=== PATIENT | male | born 1940 | race Caucasian/White ===

== ENCOUNTER 2016-08-24 12:08 | Inpatient (IN) | payer MEDICARE ==
[~2016-08-24] VITALS: Ht 182.9 cm; Wt 118.0 kg
--- NOTE | ~2016-08-24 | DS ---
[place], [place] DISCHARGE SUMMARY NAME: [facility]EDO [id number] UNIT #: [id number] ROOM: 405 DOCTOR: GREGORIO CLOUD MD BIRTHDATE: [birth year] DOS: 08/26/2016 SUBJECTIVE: The patient feeling better. OBJECTIVE: VITAL SIGNS: Blood pressure 140/70, heart rate of 85 beats per minute, breathing 18 times per minute, temperature 98 degrees Fahrenheit. GENERAL APPEARANCE: The patient is alert and oriented x 3, in no visible distress. VITAL SIGNS: VITAL SIGNS: Blood pressure 140/70, heart rate of 85 beats per minute, breathing 18 times per minute, temperature 98 degrees Fahrenheit. HEENT AND NECK: Exam within normal limits. CARDIOVASCULAR SYSTEM: Heart rate is regular in rate and rhythm. S1 and S2 normally audible. LUNGS: Clear to auscultation. ABDOMEN: Soft, nontender. No obvious organomegaly. Bowel sounds are present. EXTREMITIES: Generalized weakness and chronic skin changes in both lower extremities. DISCHARGE DIAGNOSES: 1. Acute urinary retention from stopping Flomax at home, now patient has a Johnson catheter. 2. Acute renal failure related to urinary retention, completely resolved with hydration. 3. Chronic atrial fibrillation with controlled heart rates. The patient anticoagulated and INR therapeutic at 3, anticoagulated with Coumadin. 4. Chronic stasis dermatitis in both legs and chronic leg edema. 5. Benign essential hypertension. 6. Left ventricular hypertrophy and moderate mitral regurgitation with dilated left atrium on echocardiogram from past history. 7. Cholelithiasis, choledocholithiasis in the past. 8. Benign prostatic hypertrophy. 9. Peripheral arterial disease being followed by Dr. Sandro Fiore. 10. Hypothyroidism. 11. Mixed hyperlipidemia. 12. Vitamin D deficiency. The patient admitted when he presented with acute renal failure secondary to acute urinary retention. The patient's had apparently stopped his Flomax since he was urinating too much. This apparently led to acute urine retention and acute renal failure with BUN and creatinine elevated at 73 and 7.9. Johnson catheter was placed and 3 liters of urine was retained and collected when the catheter was introduced. The patient's kidneys have returned to baseline normal function now. The patient to be sent home with Johnson catheter to follow up as an outpatient with urologist. There is no urologist available at [facility] at present time. The patient will also follow up with his PCP within a week. Kidney function is normal. Generalized weakness and failure to thrive. The patient to work with physical therapy with bedsore and fall precautions. Benign essential hypertension with controlled blood pressures. [place], [place] DISCHARGE SUMMARY NAME: MAME ACEVEDO SR UNIT #: [id number] ROOM: 405 DOCTOR: GREGORIO CLOUD MD BIRTHDATE: [birth year] Hypothyroidism, treated with supplements. Chronic atrial fibrillation. The patient anticoagulated with Coumadin and INR therapeutic at 3 prior to discharge today. The patient is complaining of constipation for which he was started on MiraLax and he will take it as needed at home after discharge. LABORATORY DATA: Urine cultures were negative. BUN and creatinine are 21 and 1.2 prior to discharge with normal serum electrolytes. INR is at 3. DISCHARGE MANAGEMENT: Coumadin 3 mg daily, MiraLax 17 grams daily, levothyroxine 75 mcg daily, metoprolol 100 mg b.i.d., amitriptyline 10 mg daily, prednisone 5 mg daily, Vicodin b.i.d. p.r.n. for pain. Follow up with PCP this week and with as soon as possible for urine retention. The patient being sent home with a Jhonson catheter and a thigh bag for collecting urine. GREGORIO CLOUD MD CM:RAMIRO [id number] GREGORIO CLOUD MD 08/27/16 0047 interface
--- NOTE | ~2016-08-24 | WRIGHTHP ---
[place], [place] PATIENT HISTORY AND PHYSICAL EXAM NAME: MAME ACEVEDO SR UNIT #: [id number] ROOM: 405 DOCTOR: GREGORIO CLOUD MD BIRTHDATE: [birth year] DOS: 08/24/2016 HISTORY OF PRESENT ILLNESS: The patient is a 75-year-old gentleman with a past medical history of: 1. Chronic stasis dermatitis in both legs and chronic leg edema. 2. Chronic atrial fibrillation. 3. Left ventricular hypertrophy with dilated left atrium and moderate MR. 4. Benign essential hypertension. 5. Cholelithiasis and choledocholithiasis in the past. 6. Benign prostatic hypertrophy. 7. Peripheral arterial disease, followed by vascular surgeon, Dr. Sandro Fiore. 8. Hypothyroidism. 9. Mixed hyperlipidemia. 10. Vitamin D deficiency. The patient was unable to urinate since last Wednesday and presented to the Emergency Department where he was found to be in urine retention and acute renal failure from urine retention. BUN and creatinine were elevated to 73 and 7.9. The patient had about 3 liters of urine in his bladder after Johnson catheter was placed. The patient is starting to feel better. No chest pain. No shortness of breath. No GI or urinary symptoms. No dizziness or fainting episode. No chest pain. REVIEW OF SYSTEMS: LUNGS: No shortness breath or wheezing. GASTROINTESTINAL: No nausea, vomiting, diarrhea or constipation. CARDIOVASCULAR SYSTEM: No chest pain, shortness of breath. FAMILY HISTORY: Noncontributory. SOCIAL HISTORY: The patient lives with his . Denies smoking cigarettes, alcohol and drug abuse. ALLERGIES: No known drug allergies, but he has LATEX allergy. HOME MEDICATIONS: Coumadin, MiraLax, levothyroxine, metoprolol, amitriptyline, prednisone and Vicodin. PHYSICAL EXAMINATION: GENERAL: Alert, oriented, very weak, in no visible distress. SKIN: Changes in his legs compatible with stasis dermatitis. IMPRESSION AND PLAN: 1. The patient has acute kidney failure related to urine retention. Johnson catheter in place and the patient diuresing very well and is being hydrated with IV fluids. BUN and creatinine improved to 38 and 2.5. [place], [place] PATIENT HISTORY AND PHYSICAL EXAM NAME: MAME ACEVEDO SR UNIT #: [id number] ROOM: [facility] DOCTOR: GREGORIO CLOUD MD BIRTHDATE: [birth year] 2. Leukocytosis, resolved spontaneously without treatment without any antibiotics. No signs of infection. 3. Generalized disability adult failure to thrive. The patient to be kept on physical therapy. 4. The patient anticoagulated with Coumadin. Protime is to be monitored. GREGORIO CLOUD MD CM:HISPHYS:PATIENT HISTORY AND PHYSICAL EXAMINATION 12 30 GREGORIO CLOUD MD 08/25/161930 interface
[~2016-08-24 12:08] MED LIST: ASPIRIN81 M1 PO; CLEOCIN HCL300 MG PO; COUMADIN3 M1 PO; DIGOXIN0.125 MG PO; DUONEB 3 MG/3 ML3 M1 INH; HYDR25T PO; LASIX40 MG PO; LISINOPRIL10 M1 PO; NEBULIZER; OMEPRAZOLE20 M2 PO; REFRESH OPTIVE10 M1 OP; REFRESH TEARS 330 ML OP; SYNTHROID,LEVO75 MCG PO; TAMSULOSIN HCL0.4 MG PO; TOPROL XL100 MG PO; VITAMIN D50000 I3 PO; ZOCOR80 MG PO
[2016-08-24] MEDS ORDERED: LEVOTHYROXIN0.075 M1 PO (12:22)
[2016-08-24] MEDS ORDERED: PREDNISONE5 MG PO (12:22)
[2016-08-24] MEDS ORDERED: WARFARIN SODIUM3 MG PO (12:22)
[2016-08-24] MEDS ORDERED: METOPROLOL TAR100 M1 PO (12:22)
[2016-08-24] MEDS ORDERED: DIGITEK0.125 MG PO (12:22)
[2016-08-24] MEDS ORDERED: ACETAMINOPHEN-H1 TA2 PO (12:23)
[2016-08-24] MEDS ORDERED: AMITRIPTYLINE10 MG PO (12:23)
[2016-08-24 12:24] VITALS: BP 132/82
[2016-08-24 12:49] LABS: BASO % 0.3 % (0.0-1.0); EOS # 0.3 10*3/uL (0.0-0.4); EOS % 2.2 % (1.0-4.0); HEMATOCRIT 42.3 % (42.0-52.0); HEMOGLOBIN 13.9 g/dl (14.0-18.0); IG # 0.1 10*3/uL (0.0-0.1); LYMPH % 6.3 % (27.0-41.0); MEAN CELL VOLUME 86.3 fl (80.0-94.0); MEAN CORPUSCULAR HGB 28.4 pg (27.0-31.0); MEAN CORPUSCULAR HGB CONC 32.9 g/dl (33.0-37.0); MEAN PLATELET VOLUME 8.6 fl (9.6-12.3); MONO % 6.2 % (3.0-9.0); NEUT % 84.5 % (47.0-73.0); PLATELET COUNT AUTOMATED 263 10*3/uL (130-400); RED CELL DISTRI WIDTH 14.5 % (0-14.5); WHITE BLOOD COUNT 15.4 10*3/uL (4.8-10.8)
[2016-08-24 12:58] LABS: INTERNATIONAL NORM RATIO 3.6 (2.0-3.5); PROTHROMBIN TIME 41.9 SECONDS (9.0-12.4)
[2016-08-24 13:09] LABS: ALBUMIN 2.7 gm/dl (3.1-4.5); BILIRUBIN, TOTAL 0.8 mg/dl (0.2-1.0); BUN 73 mg/dl (7-24); CARBON DIOXIDE 23 mmol/L (21-32); CHLORIDE 95 mmol/L (98-107); EST GLOM FILT AFRICAN AMERICAN 8 ml/min; GLUCOSE 123 mg/dL (65-99); POTASSIUM 4.4 mmol/L (3.5-5.1); SGOT/AST 30 IU/L (3-35); SGPT/ALT 43 U/L (12-78); SODIUM 133 mmol/L (136-145); TOTAL PROTEIN 7.6 gm/dL (6.4-8.2)
[2016-08-24 13:14] LABS: ALKALINE PHOSPHATASE 100 U/L (45-117); CPK 18 U/L (39-308)
[2016-08-24 13:17] LABS: CKMB < 0.5 ng/ml (0.5-3.6); TROPONIN I < 0.015 ng/ml (<0.045)
[2016-08-24 13:26] LABS: DIGOXIN 1.25 ng/ml (0.8-2.0)
[2016-08-24 18:02] LABS: BILIRUBIN NEGATIVE (NEGATIVE); BLOOD 3+ (NEGATIVE); CLARITY SL CLOUDY (CLEAR); COLOR YELLOW (YELLOW); GLUCOSE NEGATIVE (NEGATIVE); KETONE NEGATIVE (NEGATIVE); LEUKO ESTERASE TRACE (NEGATIVE); NITRITE NEGATIVE (NEGATIVE); PROTEIN TRACE (NEGATIVE); UROBILINOGEN 0.2 E.U./dl (0.2-1.0)
[2016-08-24 18:08] LABS: BACTERIA TRACE; EPITHELIAL CELLS 0-2; RBC TNTC rbc/hpf (0-2); URINE REFLEX COMMENT YES (NO); WBC 0-2 wbc/hpf (0-5)
[2016-08-24 19:10] VITALS: BP 170/80
[2016-08-24 19:48] VITALS: BP 153/86
[2016-08-24 20:30] VITALS: BP 139/67
[2016-08-24] MEDS ORDERED: SIMVASTATIN40 MG PO (21:25)
[2016-08-24] MEDS ORDERED: FLOMAX0.4 MG PO (21:26)
[2016-08-25] VITALS: BP 123/79
[2016-08-25 06:04] LABS: BASO % 0.4 % (0.0-1.0); EOS # 0.4 10*3/uL (0.0-0.4); EOS % 4.2 % (1.0-4.0); HEMATOCRIT 38.3 % (42.0-52.0); HEMOGLOBIN 12.7 g/dl (14.0-18.0); IG # 0.1 10*3/uL (0.0-0.1); LYMPH # 1.3 10*3/uL (1.3-4.4); LYMPH % 12.5 % (27.0-41.0); MEAN CELL VOLUME 86.8 fl (80.0-94.0); MEAN CORPUSCULAR HGB 28.8 pg (27.0-31.0); MEAN CORPUSCULAR HGB CONC 33.2 g/dl (33.0-37.0); MEAN PLATELET VOLUME 9.2 fl (9.6-12.3); MONO # 0.8 10*3/uL (0.1-1.0); MONO % 7.8 % (3.0-9.0); NEUT # 7.8 10*3/uL (2.3-7.9); NEUT % 74.6 % (47.0-73.0); PLATELET COUNT AUTOMATED 262 10*3/uL (130-400); RED BLOOD COUNT 4.41 10*6/uL (4.50-5.90); RED CELL DISTRI WIDTH 14.5 % (0-14.5); WHITE BLOOD COUNT 10.5 10*3/uL (4.8-10.8)
[2016-08-25 06:29] LABS: POTASSIUM 4.1 mmol/L (3.5-5.1)
[2016-08-25 07:49] VITALS: BP 129/60
[2016-08-25 08:25] LABS: ALBUMIN 2.4 gm/dl (3.1-4.5); PHOSPHOROUS 2.9 mg/dL (2.5-4.9); POTASSIUM 4.2 mmol/L (3.5-5.1)
[2016-08-25 11:52] VITALS: BP 112/68
[2016-08-25 16:00] VITALS: BP 148/73
[2016-08-25 20:00] VITALS: BP 131/67
[2016-08-26] VITALS: BP 114/64
[2016-08-26 06:17] LABS: BASO # 0.1 10*3/uL (0.0-0.1); BASO % 0.7 % (0.0-1.0); EOS # 0.6 10*3/uL (0.0-0.4); EOS % 6.1 % (1.0-4.0); HEMATOCRIT 36.5 % (42.0-52.0); HEMOGLOBIN 11.6 g/dl (14.0-18.0); IG # 0.1 10*3/uL (0.0-0.1); LYMPH # 1.6 10*3/uL (1.3-4.4); LYMPH % 14.9 % (27.0-41.0); MEAN CELL VOLUME 88.2 fl (80.0-94.0); MEAN CORPUSCULAR HGB CONC 31.8 g/dl (33.0-37.0); MEAN PLATELET VOLUME 9.1 fl (9.6-12.3); MONO # 0.7 10*3/uL (0.1-1.0); MONO % 6.2 % (3.0-9.0); NEUT # 7.5 10*3/uL (2.3-7.9); NEUT % 71.6 % (47.0-73.0); PLATELET COUNT AUTOMATED 248 10*3/uL (130-400); RED BLOOD COUNT 4.14 10*6/uL (4.50-5.90); RED CELL DISTRI WIDTH 14.5 % (0-14.5); WHITE BLOOD COUNT 10.5 10*3/uL (4.8-10.8)
[2016-08-26 06:39] LABS: PROTHROMBIN TIME 33.7 SECONDS (9.0-12.4)
[2016-08-26 06:40] LABS: CARBON DIOXIDE 26 mmol/L (21-32); CHLORIDE 105 mmol/L (98-107); EST GLOM FILT AFRICAN AMERICAN > 60 ml/min; GLUCOSE 176 mg/dL (65-99); POTASSIUM 3.5 mmol/L (3.5-5.1); SODIUM 140 mmol/L (136-145)
[2016-08-26 06:41] LABS: BUN 21 mg/dl (7-24)
[2016-08-26 08:00] VITALS: BP 140/70
[2016-08-26] MEDS ORDERED: MIRALAX POWDER17 G1 PO (10:56)
[2016-08-26] MEDS ORDERED: MIRALAX17 GM PO (11:43)
[2016-08-26 12:00] VITALS: BP 142/64
== END 2016-08-26 13:09 | disposition home or self-care (01) | DRG 682 ==
LOC: ED 12:08 → EDHOLD 18:24 → 4E 18:24
PROVIDERS: Emergency Medicine; Internal Medicine; Internal Medicine Nephrology
DX: N17.0 Acute kidney failure with tubular necrosis (principal); E43 Unspecified severe protein-calorie malnutrition; I11.9 Hypertensive heart disease without heart failure; I48.2 Chronic atrial fibrillation; D72.829 Elevated white blood cell count, unspecified; I73.9 Peripheral vascular disease, unspecified; E78.2 Mixed hyperlipidemia; E55.9 Vitamin D deficiency, unspecified; E03.9 Hypothyroidism, unspecified; K80.20 Calculus of gallbladder without cholecystitis without obstruction; K59.00 Constipation, unspecified; I87.2 Venous insufficiency (chronic) (peripheral); R62.7 Adult failure to thrive; N40.1 Benign prostatic hyperplasia with lower urinary tract symptoms; R33.8 Other retention of urine; Z79.899 Other long term (current) drug therapy; Z79.01 Long term (current) use of anticoagulants; Z68.36 Body mass index [BMI] 36.0-36.9, adult

== ENCOUNTER → 2016-09-08 | Outpatient (CLI) | payer MEDICARE ==
[~2016-09-08] MED LIST changes: +ACETAMINOPHEN-H1 TA2 PO; +AMITRIPTYLINE10 MG PO; +DIGITEK0.125 MG PO; +FLOMAX0.4 MG PO; +LEVOTHYROXIN0.075 M1 PO; +METOPROLOL TAR100 M1 PO; +MIRALAX POWDER17 G1 PO; +MIRALAX17 GM PO; +PREDNISONE5 MG PO; +SIMVASTATIN40 MG PO; +WARFARIN SODIUM3 MG PO
[2016-09-08 13:03] LABS: BASO # 0.1 10*3/uL (0.0-0.1); BASO % 0.7 % (0.0-1.0); EOS # 0.4 10*3/uL (0.0-0.4); EOS % 3.9 % (1.0-4.0); HEMATOCRIT 41.1 % (42.0-52.0); HEMOGLOBIN 13.3 g/dl (14.0-18.0); LYMPH # 1.7 10*3/uL (1.3-4.4); LYMPH % 16.3 % (27.0-41.0); MEAN CELL VOLUME 87.3 fl (80.0-94.0); MEAN CORPUSCULAR HGB 28.2 pg (27.0-31.0); MEAN CORPUSCULAR HGB CONC 32.4 g/dl (33.0-37.0); MEAN PLATELET VOLUME 8.9 fl (9.6-12.3); MONO # 0.9 10*3/uL (0.1-1.0); MONO % 8.1 % (3.0-9.0); NEUT # 7.4 10*3/uL (2.3-7.9); NEUT % 70.6 % (47.0-73.0); PLATELET COUNT AUTOMATED 386 10*3/uL (130-400); RED BLOOD COUNT 4.71 10*6/uL (4.50-5.90); RED CELL DISTRI WIDTH 14.1 % (0-14.5); WHITE BLOOD COUNT 10.4 10*3/uL (4.8-10.8)
[2016-09-08 13:31] LABS: ALBUMIN 2.8 gm/dl (3.1-4.5); ALKALINE PHOSPHATASE 99 U/L (45-117); BILIRUBIN, TOTAL 0.5 mg/dl (0.2-1.0); BUN 15 mg/dl (7-24); CARBON DIOXIDE 28 mmol/L (21-32); CHLORIDE 99 mmol/L (98-107); EST GLOM FILT AFRICAN AMERICAN > 60 ml/min; GLUCOSE 126 mg/dL (65-99); POTASSIUM 4.3 mmol/L (3.5-5.1); SGOT/AST 12 IU/L (3-35); SGPT/ALT 33 U/L (12-78); SODIUM 138 mmol/L (136-145); TOTAL PROTEIN 7.6 gm/dL (6.4-8.2)
== END | disposition home or self-care (01) ==
LOC: LAB 12:36
PROVIDERS: Urology
DX: Z12.5 Encounter for screening for malignant neoplasm of prostate (principal); I10 Essential (primary) hypertension; D40.0 Neoplasm of uncertain behavior of prostate

== ENCOUNTER → 2016-09-23 | Outpatient (CLI) | payer MEDICARE | END | disposition home or self-care (01) | LOC: CARD 09:22 | DX: I07.1 Rheumatic tricuspid insufficiency (principal); R06.02 Shortness of breath ==

== ENCOUNTER 2016-10-01 17:30 | Inpatient (IN) | payer MEDICARE ==
[~2016-10-01] VITALS: Ht 180 cm; Wt 112.7 kg
[2016-10-01 17:42] VITALS: BP 127/69
[2016-10-01 18:14] LABS: BASO # 0.1 10*3/uL (0.0-0.1); BASO % 0.6 % (0.0-1.0); EOS # 0.2 10*3/uL (0.0-0.4); EOS % 2.1 % (1.0-4.0); HEMATOCRIT 38.8 % (42.0-52.0); HEMOGLOBIN 12.5 g/dl (14.0-18.0); LYMPH # 1.4 10*3/uL (1.3-4.4); LYMPH % 12.2 % (27.0-41.0); MEAN CELL VOLUME 86.8 fl (80.0-94.0); MEAN CORPUSCULAR HGB CONC 32.2 g/dl (33.0-37.0); MEAN PLATELET VOLUME 8.5 fl (9.6-12.3); MONO # 0.8 10*3/uL (0.1-1.0); MONO % 7.3 % (3.0-9.0); NEUT # 8.9 10*3/uL (2.3-7.9); NEUT % 77.5 % (47.0-73.0); PLATELET COUNT AUTOMATED 399 10*3/uL (130-400); RED BLOOD COUNT 4.47 10*6/uL (4.50-5.90); RED CELL DISTRI WIDTH 14.5 % (0-14.5); WHITE BLOOD COUNT 11.4 10*3/uL (4.8-10.8)
[2016-10-01 18:23] LABS: INTERNATIONAL NORM RATIO 2.6 (2.0-3.5); PROTHROMBIN TIME 29.2 SECONDS (9.0-12.4)
[2016-10-01 18:31] LABS: BUN 13 mg/dl (7-24); CARBON DIOXIDE 26 mmol/L (21-32); CHLORIDE 98 mmol/L (98-107); EST GLOM FILT AFRICAN AMERICAN > 60 ml/min; GLUCOSE 189 mg/dL (65-99); POTASSIUM 3.7 mmol/L (3.5-5.1); SODIUM 135 mmol/L (136-145)
[2016-10-01 18:33] LABS: TROPONIN I < 0.015 ng/ml (<0.045)
[2016-10-01 20:30] VITALS: BP 100/67
[2016-10-01 21:16] VITALS: BP 148/87
[2016-10-02] VITALS: BP 147/78
[2016-10-02 08:58] VITALS: BP 106/54
[2016-10-02 12:00] VITALS: BP 120/54
[2016-10-02 16:00] VITALS: BP 115/60
[2016-10-02 20:00] VITALS: BP 124/67
[2016-10-03] VITALS: BP 109/64
[2016-10-03 04:00] VITALS: BP 109/64
[2016-10-03 06:59] LABS: BASO # 0.1 10*3/uL (0.0-0.1); EOS # 0.5 10*3/uL (0.0-0.4); EOS % 6.2 % (1.0-4.0); HEMATOCRIT 36.3 % (42.0-52.0); HEMOGLOBIN 11.8 g/dl (14.0-18.0); LYMPH # 2.3 10*3/uL (1.3-4.4); LYMPH % 27.8 % (27.0-41.0); MEAN CELL VOLUME 87.9 fl (80.0-94.0); MEAN CORPUSCULAR HGB 28.6 pg (27.0-31.0); MEAN CORPUSCULAR HGB CONC 32.5 g/dl (33.0-37.0); MEAN PLATELET VOLUME 8.9 fl (9.6-12.3); MONO # 0.7 10*3/uL (0.1-1.0); MONO % 8.5 % (3.0-9.0); NEUT # 4.7 10*3/uL (2.3-7.9); NEUT % 56.1 % (47.0-73.0); PLATELET COUNT AUTOMATED 354 10*3/uL (130-400); RED BLOOD COUNT 4.13 10*6/uL (4.50-5.90); RED CELL DISTRI WIDTH 14.3 % (0-14.5); WHITE BLOOD COUNT 8.4 10*3/uL (4.8-10.8)
[2016-10-03 07:32] LABS: BUN 16 mg/dl (7-24); CARBON DIOXIDE 31 mmol/L (21-32); CHLORIDE 97 mmol/L (98-107); EST GLOM FILT AFRICAN AMERICAN > 60 ml/min; GLUCOSE 116 mg/dL (65-99); POTASSIUM 3.1 mmol/L (3.5-5.1); SODIUM 137 mmol/L (136-145)
[2016-10-03 07:39] LABS: INTERNATIONAL NORM RATIO 2.6 (2.0-3.5); PROTHROMBIN TIME 28.7 SECONDS (9.0-12.4)
[2016-10-03 08:00] VITALS: BP 114/68
[2016-10-03 12:00] VITALS: BP 134/63
[2016-10-03 16:00] VITALS: BP 120/59
[2016-10-03 20:00] VITALS: BP 137/97
[2016-10-04] VITALS: BP 128/70
[2016-10-04 06:58] LABS: BASO # 0.1 10*3/uL (0.0-0.1); BASO % 0.7 % (0.0-1.0); EOS # 0.7 10*3/uL (0.0-0.4); EOS % 5.5 % (1.0-4.0); HEMATOCRIT 37.7 % (42.0-52.0); HEMOGLOBIN 11.9 g/dl (14.0-18.0); LYMPH # 2.1 10*3/uL (1.3-4.4); LYMPH % 17.5 % (27.0-41.0); MEAN CELL VOLUME 87.7 fl (80.0-94.0); MEAN CORPUSCULAR HGB 27.7 pg (27.0-31.0); MEAN CORPUSCULAR HGB CONC 31.6 g/dl (33.0-37.0); MONO # 0.9 10*3/uL (0.1-1.0); MONO % 7.2 % (3.0-9.0); NEUT # 8.3 10*3/uL (2.3-7.9); NEUT % 68.8 % (47.0-73.0); PLATELET COUNT AUTOMATED 395 10*3/uL (130-400); RED CELL DISTRI WIDTH 14.1 % (0-14.5); WHITE BLOOD COUNT 12.1 10*3/uL (4.8-10.8)
[2016-10-04 07:32] LABS: INTERNATIONAL NORM RATIO 2.8 (2.0-3.5); PROTHROMBIN TIME 31.4 SECONDS (9.0-12.4)
[2016-10-04 07:33] LABS: CHLORIDE 98 mmol/L (98-107); POTASSIUM 3.3 mmol/L (3.5-5.1); SODIUM 137 mmol/L (136-145)
[2016-10-04 07:40] LABS: BUN 16 mg/dl (7-24); CARBON DIOXIDE 30 mmol/L (21-32); EST GLOM FILT AFRICAN AMERICAN > 60 ml/min; GLUCOSE 115 mg/dL (65-99)
[2016-10-04 08:00] VITALS: BP 130/74
[2016-10-04 12:00] VITALS: BP 121/73
[2016-10-04 15:57] VITALS: BP 121/75
[2016-10-04 20:00] VITALS: BP 143/75
[2016-10-05] VITALS: BP 134/75
[2016-10-05 06:05] LABS: BASO # 0.1 10*3/uL (0.0-0.1); BASO % 0.8 % (0.0-1.0); EOS # 0.6 10*3/uL (0.0-0.4); EOS % 6.6 % (1.0-4.0); HEMATOCRIT 37.9 % (42.0-52.0); HEMOGLOBIN 12.2 g/dl (14.0-18.0); LYMPH # 2.5 10*3/uL (1.3-4.4); LYMPH % 28.3 % (27.0-41.0); MEAN CELL VOLUME 87.5 fl (80.0-94.0); MEAN CORPUSCULAR HGB 28.2 pg (27.0-31.0); MEAN CORPUSCULAR HGB CONC 32.2 g/dl (33.0-37.0); MONO # 0.7 10*3/uL (0.1-1.0); NEUT # 4.9 10*3/uL (2.3-7.9); PLATELET COUNT AUTOMATED 405 10*3/uL (130-400); RED BLOOD COUNT 4.33 10*6/uL (4.50-5.90); WHITE BLOOD COUNT 8.8 10*3/uL (4.8-10.8)
[2016-10-05 06:09] LABS: BUN 17 mg/dl (7-24); CARBON DIOXIDE 29 mmol/L (21-32); CHLORIDE 99 mmol/L (98-107); EST GLOM FILT AFRICAN AMERICAN > 60 ml/min; GLUCOSE 111 mg/dL (65-99); POTASSIUM 3.6 mmol/L (3.5-5.1); SODIUM 138 mmol/L (136-145)
[2016-10-05] MEDS ORDERED: FUROSEMIDE40 MG PO (07:56)
[2016-10-05] MEDS ORDERED: KLOR-CON 88 ME1 PO (07:56)
[2016-10-05 08:00] VITALS: BP 123/61
[2016-10-05 12:00] VITALS: BP 140/85
== END 2016-10-05 13:50 | DRG 292 ==
LOC: ED 17:30 → 5E 20:06 → EDHOLD 20:06 → 5E 20:16
PROVIDERS: Emergency Medicine; Internal Medicine
DX: I11.0 Hypertensive heart disease with heart failure (principal); E87.0 Hyperosmolality and hypernatremia; I48.2 Chronic atrial fibrillation; J44.9 Chronic obstructive pulmonary disease, unspecified; E66.9 Obesity, unspecified; I50.31 Acute diastolic (congestive) heart failure; N40.0 Benign prostatic hyperplasia without lower urinary tract symptoms; R62.7 Adult failure to thrive; Z79.01 Long term (current) use of anticoagulants; R91.8 Other nonspecific abnormal finding of lung field; F17.210 Nicotine dependence, cigarettes, uncomplicated; I73.9 Peripheral vascular disease, unspecified; Z96.651 Presence of right artificial knee joint; Z91.040 Latex allergy status; Z98.41 Cataract extraction status, right eye; Z98.42 Cataract extraction status, left eye; Z80.8 Family history of malignant neoplasm of other organs or systems; Z79.899 Other long term (current) drug therapy; Z68.35 Body mass index [BMI] 35.0-35.9, adult

== ENCOUNTER → 2016-10-29 | Outpatient (CLI) | payer MEDICARE ==
[~2016-10-29] MED LIST changes: +FUROSEMIDE40 MG PO; +KLOR-CON 88 ME1 PO; +NORVASC10 MG PO
--- NOTE | ~2016-10-29 | ST ---
[place], [place] EXERCISE STRESS TEST REPORT NAME[id number] UNIT #: [id number] ROOM: DOCTOR: ZHANE DFUF MD BIRTHDATE: [birth year] DOS: 10/29/2016 REASON FOR TESTING: Evaluation of normal EKG. The patient's resting heart rate is 85 with blood pressure of 142/70. EKG showed atrial fibrillation with right ventricular branch block. The patient was injected with Lexiscan 0.4 mg. He did not experience any complaint of chest pains or shortness of breath during the infusion. After the infusion was over, he injected with Cardiolite and stress images were taken. ASSESSMENT AND PLAN: Lexiscan stress test without any ST-T changes. Chronic atrial fibrillation is noted on the monitor. Cardiolite images pending. ZHANE DUFF MD CM:STRESS:EXERCISE STRESS TEST REPORT [id number] ZHANE DUFF MD
== END | disposition home or self-care (01) ==
LOC: CARD 00:45
DX: R53.81 Other malaise (principal); R94.31 Abnormal electrocardiogram [ECG] [EKG]; R06.02 Shortness of breath

== ENCOUNTER → 2017-01-21 | Outpatient (CLI) | payer MEDICARE ==
[2017-01-21 16:13] LABS: BASO # 0.1 10*3/uL (0.0-0.1); BASO % 0.7 % (0.0-1.0); EOS # 0.4 10*3/uL (0.0-0.4); HEMATOCRIT 40.4 % (42.0-52.0); HEMOGLOBIN 13.2 g/dl (14.0-18.0); LYMPH # 2.1 10*3/uL (1.3-4.4); LYMPH % 21.9 % (27.0-41.0); MEAN CELL VOLUME 90.2 fl (80.0-94.0); MEAN CORPUSCULAR HGB 29.5 pg (27.0-31.0); MEAN CORPUSCULAR HGB CONC 32.7 g/dl (33.0-37.0); MEAN PLATELET VOLUME 8.6 fl (9.6-12.3); MONO # 0.6 10*3/uL (0.1-1.0); MONO % 5.9 % (3.0-9.0); NEUT # 6.4 10*3/uL (2.3-7.9); PLATELET COUNT AUTOMATED 393 10*3/uL (130-400); RED BLOOD COUNT 4.48 10*6/uL (4.50-5.90); RED CELL DISTRI WIDTH 13.5 % (0-14.5); WHITE BLOOD COUNT 9.6 10*3/uL (4.8-10.8)
[2017-01-21 16:44] LABS: ALBUMIN 2.8 gm/dl (3.1-4.5); ALKALINE PHOSPHATASE 79 U/L (45-117); BUN 11 mg/dl (7-24); CHLORIDE 96 mmol/L (98-107); CREATININE 1.12 mg/dL (0.70-1.30); POTASSIUM 3.7 mmol/L (3.5-5.1); SGOT/AST 12 IU/L (3-35); SGPT/ALT 18 U/L (12-78); SODIUM 133 mmol/L (136-145); TOTAL PROTEIN 7.8 gm/dL (6.4-8.2)
== END | disposition home or self-care (01) ==
LOC: LAB 15:46
PROVIDERS: Nurse Practitioner Family
DX: I10 Essential (primary) hypertension (principal)

== ENCOUNTER → 2017-01-22 | Outpatient (CLI) | payer MEDICARE | LOC: US 12-21 14:00 | DX: N28.1 Cyst of kidney, acquired (principal); N40.1 Benign prostatic hyperplasia with lower urinary tract symptoms ==

== ENCOUNTER 2017-08-20 13:25 | Emergency (ER) | payer MEDICARE ==
[~2017-08-20] VITALS: Ht 182.8 cm; Wt 120.2 kg
[~2017-08-20 13:25] MED LIST changes: -ACETAMINOPHEN-H1 TA2 PO; +BUMEX2.5 MG/10 PO; +GLIPIZIDE5 MG PO; +NORCO 5-325 TA1 EACH PO
[2017-08-20 13:55] LABS: BASO # 0.1 10*3/uL (0.0-0.1); BASO % 0.6 % (0.0-1.0); EOS # 0.4 10*3/uL (0.0-0.4); EOS % 4.3 % (1.0-4.0); HEMATOCRIT 39.9 % (42.0-52.0); HEMOGLOBIN 12.9 g/dl (14.0-18.0); LYMPH # 1.9 10*3/uL (1.3-4.4); LYMPH % 20.4 % (27.0-41.0); MEAN CELL VOLUME 88.1 fl (80.0-94.0); MEAN CORPUSCULAR HGB 28.5 pg (27.0-31.0); MEAN CORPUSCULAR HGB CONC 32.3 g/dl (33.0-37.0); MEAN PLATELET VOLUME 8.9 fl (9.6-12.3); MONO # 0.8 10*3/uL (0.1-1.0); MONO % 8.1 % (3.0-9.0); NEUT # 6.3 10*3/uL (2.3-7.9); NEUT % 66.4 % (47.0-73.0); PLATELET COUNT AUTOMATED 370 10*3/uL (130-400); RED BLOOD COUNT 4.53 10*6/uL (4.50-5.90); RED CELL DISTRI WIDTH 14.6 % (0-14.5); WHITE BLOOD COUNT 9.5 10*3/uL (4.8-10.8)
[2017-08-20 14:08] LABS: ALBUMIN 2.6 gm/dl (3.1-4.5); ALKALINE PHOSPHATASE 137 U/L (45-117); BUN 16 mg/dl (7-24); CHLORIDE 99 mmol/L (98-107); CREATININE 1.04 mg/dL (0.70-1.30); POTASSIUM 3.1 mmol/L (3.5-5.1); SGOT/AST 29 IU/L (3-35); SGPT/ALT 49 U/L (12-78); SODIUM 137 mmol/L (136-145); TOTAL PROTEIN 7.8 gm/dL (6.4-8.2)
[2017-08-20 14:41] LABS: INTERNATIONAL NORM RATIO 5.9 (2.0-3.5)
== END 2017-08-20 15:21 | disposition home or self-care (01) ==
LOC: ED 13:25
PROVIDERS: Nurse Practitioner Family
DX: R79.1 Abnormal coagulation profile (principal); I48.91 Unspecified atrial fibrillation; R03.0 Elevated blood-pressure reading, without diagnosis of hypertension; Z98.890 Other specified postprocedural states; Z87.891 Personal history of nicotine dependence; Z96.651 Presence of right artificial knee joint; Z79.01 Long term (current) use of anticoagulants; Z91.040 Latex allergy status; Z79.899 Other long term (current) drug therapy

== ENCOUNTER → 2017-10-22 | Outpatient (CLI) | payer MEDICARE ==
[2017-10-22 11:14] LABS: BASO # 0.1 10*3/uL (0.0-0.1); BASO % 0.8 % (0.0-1.0); EOS # 0.5 10*3/uL (0.0-0.4); EOS % 4.2 % (1.0-4.0); HEMATOCRIT 41.4 % (42.0-52.0); HEMOGLOBIN 12.8 g/dl (14.0-18.0); LYMPH # 1.8 10*3/uL (1.3-4.4); LYMPH % 15.4 % (27.0-41.0); MEAN CELL VOLUME 91.2 fl (80.0-94.0); MEAN CORPUSCULAR HGB 28.2 pg (27.0-31.0); MEAN CORPUSCULAR HGB CONC 30.9 g/dl (33.0-37.0); MEAN PLATELET VOLUME 8.7 fl (9.6-12.3); MONO # 0.7 10*3/uL (0.1-1.0); NEUT # 8.7 10*3/uL (2.3-7.9); NEUT % 73.3 % (47.0-73.0); PLATELET COUNT AUTOMATED 401 10*3/uL (130-400); RED BLOOD COUNT 4.54 10*6/uL (4.50-5.90); RED CELL DISTRI WIDTH 14.5 % (0-14.5); WHITE BLOOD COUNT 11.9 10*3/uL (4.8-10.8)
[2017-10-25 16:09] LABS: A/G RATIO 0.6 (0.7-1.7); ALBUMIN 2.5 g/dL (2.9-4.4); ALPHA-1-GLOBULIN 0.3 g/dL (0.0-0.4); BETA GLOBULIN 1.2 g/dL (0.7-1.3); FREE KAPPA LIGHT CHAINS 94.4 mg/L (3.3-19.4); FREE LAMBDA LIGHT CHAINS 66.9 mg/L (5.7-26.3); GAMMA GLOBULIN 1.7 g/dL (0.4-1.8); GLOBULIN, TOTAL 4.2 g/dL (2.2-3.9); IMMUNOGLOBULIN G, QNT 1576 mg/dL (700-1600); IMMUNOGLOBULIN M, QNT 66 mg/dL (15-143); M-SPIKE Not Observed g/dL (Not Observed); TOTAL PROTEIN, SERUM 6.7 g/dL (6.0-8.5)
[2017-10-27 14:05] LABS: ALBUMIN, URINE RANDOM 8.2 % (.); ALPHA-1-GLOBULIN, URINE 1.8 % (.); ALPHA-2-GLOBULIN, URINE 12.1 % (.); GAMMA GLOBULIN, URINE 22.6 % (.); M-SPIKE % Not Observed % (Not Observed); PROTEIN,TOTAL - URINE RANDOM <4.0 mg/dL (Not Estab.)
[2017-10-28 07:43] LABS: CCP ANTIBODIES IGG/IGA >250 units (0-19); KAPPA/LAMBDA RATIO 1.41 (0.26-1.65); RHEUMATOID ARTHRITIS FACTOR <10.0 IU/mL (0.0-13.9)
== END | disposition home or self-care (01) ==
LOC: WOUNDCARE 02:32 → LAB 02:32 → WOUNDCARE 10:25
PROVIDERS: Internal Medicine Rheumatology
DX: R70.0 Elevated erythrocyte sedimentation rate (principal); M25.50 Pain in unspecified joint

== ENCOUNTER → 2020-01-19 | Outpatient (CLI) | payer MEDICARE ==
[~2020-01-19] MED LIST changes: +BUMETANIDE2 MG PO; +FERROUS SULFAT325 MG PO; +K-TAB10 MEQ PO; +NATURE'S BLEND F1 MG PO; -SIMVASTATIN40 MG PO; +SIMVASTATIN80 MG PO
[2020-01-19 10:44] LABS: BASO # 0.1 10*3/uL (0.0-0.1); BASO % 0.6 % (0.0-1.0); EOS # 0.3 10*3/uL (0.0-0.4); EOS % 2.4 % (1.0-4.0); HEMATOCRIT 50.3 % (42.0-52.0); LYMPH # 1.4 10*3/uL (1.3-4.4); LYMPH % 12.2 % (27.0-41.0); MEAN CELL VOLUME 93.3 fl (80.0-94.0); MEAN CORPUSCULAR HGB 29.9 pg (27.0-31.0); MEAN PLATELET VOLUME 9.4 fl (9.6-12.3); MONO # 0.8 10*3/uL (0.1-1.0); MONO % 7.1 % (3.0-9.0); NEUT # 8.6 10*3/uL (2.3-7.9); NEUT % 77.3 % (47.0-73.0); PLATELET COUNT AUTOMATED 262 10*3/uL (130-400); RED BLOOD COUNT 5.39 10*6/uL (4.50-5.90); RED CELL DISTRI WIDTH 13.2 % (0-14.5); WHITE BLOOD COUNT 11.2 10*3/uL (4.8-10.8)
[2020-01-19 11:14] LABS: ALBUMIN 3.3 gm/dl (3.1-4.5); CREATININE 1.39 mg/dL (0.70-1.30); POTASSIUM 3.4 mmol/L (3.5-5.1); TOTAL PROTEIN 7.5 gm/dL (6.4-8.2)
== END | disposition home or self-care (01) ==
LOC: LAB 10:18
PROVIDERS: ATTEND Internal Medicine
DX: I48.20 Chronic atrial fibrillation, unspecified (principal); I73.9 Peripheral vascular disease, unspecified

== ENCOUNTER → 2020-01-30 | Outpatient (CLI) | payer MEDICARE ==
--- NOTE | 2020-01-30 07:00 | NUR ---
INFORMED CONSENT OBTAINED FOR LEXISCAN NUCLEAR STRESS TEST WITH DR. GARCIA. RESTING EKG A-FIB RBBB WITH A RESTING HR OF 71 AND BP OF 120/72. HAS DIMINISHED BS IN RIGHT BASE WITH SPO2 OF 98% ON ROOM AIR. PT COMPLETED A 1:00 LEXISCAN PROTOCOL RECEIVING LEXISCAN 0.4 MG IV OVER 10 SECONDS. HAD NO CHEST DISCOMFORT WITH NONDIAGNOSTIC EKG. HAD A PEAK HR OF 90 WITH BP OF 100/64. LAST RECOVERY HR OF 91 WITH BP OF 106/76. AWAITING SCANNING IN STABLE CONDITION.
== END | disposition home or self-care (01) ==
LOC: CARD 02:00
PROVIDERS: ATTEND Internal Medicine Cardiovascular Disease
DX: Z01.810 Encounter for preprocedural cardiovascular examination (principal); R94.31 Abnormal electrocardiogram [ECG] [EKG]; R53.81 Other malaise

== ENCOUNTER → 2020-02-01 | Outpatient (CLI) | payer MEDICARE | END | disposition home or self-care (01) | LOC: CARD 13:23 | PROVIDERS: ATTEND Internal Medicine Cardiovascular Disease | DX: Z01.818 Encounter for other preprocedural examination (principal) ==

== ENCOUNTER → 2020-02-23 | Outpatient (CLI) | payer MEDICARE | END | disposition home or self-care (01) | LOC: COVID19 14:17 | PROVIDERS: ATTEND Specialist | DX: Z01.818 Encounter for other preprocedural examination (principal); Z20.828 Contact with and (suspected) exposure to other viral communicable diseases ==

== ENCOUNTER → 2020-07-25 | Outpatient (CLI) | payer MEDICARE | END | disposition home or self-care (01) | LOC: US 12:54 | PROVIDERS: ATTEND Physician Assistant Medical | DX: N28.1 Cyst of kidney, acquired (principal); Z96.0 Presence of urogenital implants ==

== ENCOUNTER 2020-07-28 17:16 | Inpatient (IN) | payer MEDICARE ==
[~2020-07-28] VITALS: Ht 182.9 cm; Wt 115.0 kg
[2020-07-28 17:34] VITALS: BP 123/43
[2020-07-28 21:12] LABS: BASO # 0.1 10*3/uL (0.0-0.1); BASO % 0.4 % (0.0-1.0); EOS # 0.1 10*3/uL (0.0-0.4); EOS % 0.8 % (1.0-4.0); HEMATOCRIT 45.4 % (42.0-52.0); LYMPH # 1.1 10*3/uL (1.3-4.4); LYMPH % 8.4 % (27.0-41.0); MEAN CORPUSCULAR HGB 30.5 pg (27.0-31.0); MEAN CORPUSCULAR HGB CONC 32.2 g/dl (33.0-37.0); MEAN PLATELET VOLUME 9.5 fl (9.6-12.3); MONO % 7.1 % (3.0-9.0); NEUT # 11.1 10*3/uL (2.3-7.9); NEUT % 82.4 % (47.0-73.0); PLATELET COUNT AUTOMATED 266 10*3/uL (130-400); RED BLOOD COUNT 4.78 10*6/uL (4.50-5.90); RED CELL DISTRI WIDTH 12.8 % (0-14.5); WHITE BLOOD COUNT 13.5 10*3/uL (4.8-10.8)
[2020-07-28 21:55] LABS: INTERNATIONAL NORM RATIO 1.6 (2.0-3.5)
[2020-07-28 22:05] LABS: ALBUMIN 3.4 gm/dl (3.1-4.5); CREATININE 1.39 mg/dL (0.70-1.30); POTASSIUM 4.1 mmol/L (3.5-5.1); TOTAL PROTEIN 7.9 gm/dL (6.4-8.2)
[2020-07-29 03:10] VITALS: BP 137/74
[2020-07-29 09:43] VITALS: BP 143/62
[2020-07-29 11:32] VITALS: BP 140/70
[2020-07-29 11:44] VITALS: BP 139/82
[2020-07-29 16:18] VITALS: BP 127/84
[2020-07-29 20:00] VITALS: BP 112/73
[2020-07-30] VITALS: BP 136/69
[2020-07-30 07:27] LABS: BASO # 0.1 10*3/uL (0.0-0.1); BASO % 0.5 % (0.0-1.0); EOS # 0.5 10*3/uL (0.0-0.4); EOS % 4.5 % (1.0-4.0); HEMATOCRIT 39.3 % (42.0-52.0); LYMPH # 1.1 10*3/uL (1.3-4.4); LYMPH % 10.5 % (27.0-41.0); MEAN CORPUSCULAR HGB 30.9 pg (27.0-31.0); MEAN CORPUSCULAR HGB CONC 32.8 g/dl (33.0-37.0); MEAN PLATELET VOLUME 9.6 fl (9.6-12.3); MONO # 0.8 10*3/uL (0.1-1.0); MONO % 7.8 % (3.0-9.0); NEUT # 7.8 10*3/uL (2.3-7.9); NEUT % 75.8 % (47.0-73.0); PLATELET COUNT AUTOMATED 271 10*3/uL (130-400); RED BLOOD COUNT 4.18 10*6/uL (4.50-5.90); WHITE BLOOD COUNT 10.3 10*3/uL (4.8-10.8)
[2020-07-30 07:39] LABS: BUN 19 mg/dl (7-24); CHLORIDE 100 mmol/L (98-107); CREATININE 1.11 mg/dL (0.70-1.30)
[2020-07-30 07:40] LABS: INTERNATIONAL NORM RATIO 1.8 (2.0-3.5)
[2020-07-30 07:47] LABS: SODIUM 136 mmol/L (136-145)
[2020-07-30 08:00] VITALS: BP 128/64
[2020-07-30 16:00] VITALS: BP 100/57
[2020-07-30 20:00] VITALS: BP 137/82
[2020-07-31] VITALS: BP 129/68
[2020-07-31 06:54] LABS: BASO # 0.1 10*3/uL (0.0-0.1); BASO % 0.5 % (0.0-1.0); EOS # 0.5 10*3/uL (0.0-0.4); HEMATOCRIT 37.7 % (42.0-52.0); LYMPH # 1.3 10*3/uL (1.3-4.4); LYMPH % 11.2 % (27.0-41.0); MEAN CELL VOLUME 94.5 fl (80.0-94.0); MEAN CORPUSCULAR HGB 30.8 pg (27.0-31.0); MEAN CORPUSCULAR HGB CONC 32.6 g/dl (33.0-37.0); MEAN PLATELET VOLUME 9.3 fl (9.6-12.3); MONO # 0.8 10*3/uL (0.1-1.0); MONO % 7.1 % (3.0-9.0); NEUT # 8.6 10*3/uL (2.3-7.9); NEUT % 76.3 % (47.0-73.0); PLATELET COUNT AUTOMATED 260 10*3/uL (130-400); RED BLOOD COUNT 3.99 10*6/uL (4.50-5.90); RED CELL DISTRI WIDTH 12.8 % (0-14.5); WHITE BLOOD COUNT 11.2 10*3/uL (4.8-10.8)
[2020-07-31 07:04] LABS: INTERNATIONAL NORM RATIO 2.3 (2.0-3.5)
[2020-07-31 07:13] LABS: BUN 20 mg/dl (7-24); CHLORIDE 101 mmol/L (98-107); POTASSIUM 3.9 mmol/L (3.5-5.1); SODIUM 135 mmol/L (136-145)
[2020-07-31 07:24] LABS: DIGOXIN 0.76 ng/ml (0.8-2.0)
[2020-07-31 08:00] VITALS: BP 134/60
[2020-07-31 12:00] VITALS: BP 104/82
[2020-07-31 15:00] VITALS: BP 124/67
[2020-08-01] VITALS: BP 139/63
[2020-08-01 06:46] LABS: BASO # 0.1 10*3/uL (0.0-0.1); BASO % 0.7 % (0.0-1.0); EOS # 0.4 10*3/uL (0.0-0.4); EOS % 3.5 % (1.0-4.0); HEMATOCRIT 42.1 % (42.0-52.0); LYMPH # 1.3 10*3/uL (1.3-4.4); LYMPH % 11.8 % (27.0-41.0); MEAN CELL VOLUME 95.2 fl (80.0-94.0); MEAN CORPUSCULAR HGB 30.8 pg (27.0-31.0); MEAN CORPUSCULAR HGB CONC 32.3 g/dl (33.0-37.0); MEAN PLATELET VOLUME 8.8 fl (9.6-12.3); MONO # 0.9 10*3/uL (0.1-1.0); MONO % 8.2 % (3.0-9.0); PLATELET COUNT AUTOMATED 300 10*3/uL (130-400); RED BLOOD COUNT 4.42 10*6/uL (4.50-5.90); RED CELL DISTRI WIDTH 12.9 % (0-14.5); WHITE BLOOD COUNT 10.7 10*3/uL (4.8-10.8)
[2020-08-01 07:01] LABS: INTERNATIONAL NORM RATIO 3.3 (2.0-3.5)
[2020-08-01 07:24] LABS: BUN 20 mg/dl (7-24); CHLORIDE 99 mmol/L (98-107); CREATININE 1.28 mg/dL (0.70-1.30); SODIUM 138 mmol/L (136-145)
[2020-08-01] MEDS ORDERED: LANTUS SOL100 UNIT/1 SC (07:56)
[2020-08-01] MEDS ORDERED: GLIPIZIDE10 M2 PO (07:56)
[2020-08-01 08:00] VITALS: BP 114/78
[2020-08-01 16:14] VITALS: BP 138/59
[2020-08-01 20:00] VITALS: BP 119/42
[2020-08-02] VITALS: BP 135/66
[2020-08-02] MEDS ORDERED: ZOCOR40 MG PO (06:47)
[2020-08-02 07:03] LABS: INTERNATIONAL NORM RATIO 3.7 (2.0-3.5)
[2020-08-02 08:00] VITALS: BP 117/49
== END 2020-08-02 13:00 | DRG 534 ==
LOC: ED 17:16 → EDHOLD 21:55 → 5E 21:55
PROVIDERS: Emergency Medicine; Internal Medicine; ADMIT Internal Medicine; ATTEND Internal Medicine
DX: S72.435A Nondisplaced fracture of medial condyle of left femur, initial encounter for closed fracture (principal); I48.21 Permanent atrial fibrillation; I50.32 Chronic diastolic (congestive) heart failure; F05 Delirium due to known physiological condition; R62.7 Adult failure to thrive; E11.65 Type 2 diabetes mellitus with hyperglycemia; M17.12 Unilateral primary osteoarthritis, left knee; E11.51 Type 2 diabetes mellitus with diabetic peripheral angiopathy without gangrene; S92.402A Displaced unspecified fracture of left great toe, initial encounter for closed fracture; I87.2 Venous insufficiency (chronic) (peripheral); Z96.651 Presence of right artificial knee joint; E03.9 Hypothyroidism, unspecified; E78.2 Mixed hyperlipidemia; I11.0 Hypertensive heart disease with heart failure; R79.1 Abnormal coagulation profile; J44.9 Chronic obstructive pulmonary disease, unspecified; E66.9 Obesity, unspecified; N40.1 Benign prostatic hyperplasia with lower urinary tract symptoms; R33.8 Other retention of urine; Z20.822 Contact with and (suspected) exposure to COVID-19; W01.0XXA Fall on same level from slipping, tripping and stumbling without subsequent striking against object, initial encounter; Z98.42 Cataract extraction status, left eye; Z98.41 Cataract extraction status, right eye; Z87.891 Personal history of nicotine dependence; Z82.49 Family history of ischemic heart disease and other diseases of the circulatory system; Z82.3 Family history of stroke; Z79.01 Long term (current) use of anticoagulants; Z91.040 Latex allergy status; Z80.8 Family history of malignant neoplasm of other organs or systems; Z92.21 Personal history of antineoplastic chemotherapy; Z92.3 Personal history of irradiation; Z79.899 Other long term (current) drug therapy; Z79.84 Long term (current) use of oral hypoglycemic drugs; Z79.52 Long term (current) use of systemic steroids; Y93.89 Activity, other specified; Y92.098 Other place in other non-institutional residence as the place of occurrence of the external cause; Y99.8 Other external cause status; Z68.34 Body mass index [BMI] 34.0-34.9, adult

== ENCOUNTER → 2020-08-20 | Outpatient (CLI) | payer MEDICARE ==
[~2020-08-20] MED LIST changes: +GLIPIZIDE10 M2 PO; +LANTUS SOL100 UNIT/1 SC; +ZOCOR40 MG PO
== END | disposition home or self-care (01) ==
LOC: ORTHO 00:29
PROVIDERS: ATTEND Orthopaedic Surgery
DX: S72.392A Other fracture of shaft of left femur, initial encounter for closed fracture (principal); S72.435A Nondisplaced fracture of medial condyle of left femur, initial encounter for closed fracture; X58.XXXA Exposure to other specified factors, initial encounter; Y93.89 Activity, other specified; Y92.89 Other specified places as the place of occurrence of the external cause; Y99.8 Other external cause status

== ENCOUNTER → 2020-09-11 | Outpatient (CLI) | payer MEDICARE | END | disposition home or self-care (01) | LOC: ORTHO 12:39 | PROVIDERS: ATTEND Orthopaedic Surgery | DX: S72.392D Other fracture of shaft of left femur, subsequent encounter for closed fracture with routine healing (principal); M17.12 Unilateral primary osteoarthritis, left knee; M81.8 Other osteoporosis without current pathological fracture; R22.42 Localized swelling, mass and lump, left lower limb; X58.XXXD Exposure to other specified factors, subsequent encounter ==

== ENCOUNTER 2022-02-07 11:08 | Inpatient (IN) | payer MEDICARE ==
[~2022-02-07] VITALS: Ht 182.8 cm; Wt 103.6 kg
[2022-02-07] VITALS: BP 94/66
[~2022-02-07 11:08] MED LIST changes: -LEVOTHYROXIN0.075 M1 PO; +Synthroid,Lev100 MCG PO
[2022-02-07 11:19] VITALS: BP 155/75
[2022-02-07 11:45] LABS: BASO # 0.1 10*3/uL (0.0-0.1); BASO % 0.6 % (0.0-1.0); EOS # 0.1 10*3/uL (0.0-0.4); EOS % 0.3 % (1.0-4.0); HEMATOCRIT 56.1 % (42.0-52.0); LYMPH # 0.6 10*3/uL (1.3-4.4); LYMPH % 4.2 % (27.0-41.0); MEAN CELL VOLUME 94.3 fl (80.0-94.0); MEAN CORPUSCULAR HGB 30.8 pg (27.0-31.0); MEAN CORPUSCULAR HGB CONC 32.6 g/dl (33.0-37.0); MEAN PLATELET VOLUME 9.4 fl (9.6-12.3); MONO # 0.8 10*3/uL (0.1-1.0); MONO % 5.4 % (3.0-9.0); NEUT # 13.4 10*3/uL (2.3-7.9); NEUT % 89.2 % (47.0-73.0); PLATELET COUNT AUTOMATED 256 10*3/uL (130-400); RED BLOOD COUNT 5.95 10*6/uL (4.50-5.90); RED CELL DISTRI WIDTH 13.4 % (0-14.5); WHITE BLOOD COUNT 15.1 10*3/uL (4.8-10.8)
[2022-02-07 11:56] LABS: ACT PARTIAL THROMBO TIME 27.9 SECONDS (20.0-32.1); INTERNATIONAL NORM RATIO 1.1 (2.0-3.5)
[2022-02-07 12:00] VITALS: BP 94/66
[2022-02-07 12:01] LABS: CREATININE 1.59 mg/dL (0.70-1.30); POTASSIUM 3.7 mmol/L (3.5-5.1); TOTAL PROTEIN 8.2 gm/dL (6.4-8.2)
[2022-02-07 15:04] LABS: BILIRUBIN Negative (Negative); BLOOD 1+ (Negative); CLARITY Turbid (Clear); COLOR Dark Yellow (Yellow); GLUCOSE Negative (Negative); KETONE Trace (Negative); LEUKO ESTERASE 3+ (Negative); NITRITE Negative (Negative); PH 7.5 (4.5-8.0)
[2022-02-07 15:32] LABS: BACTERIA 4+; WBC TNTC wbc/hpf (0-5)
[2022-02-07 16:00] VITALS: BP 160/80
[2022-02-07 17:45] VITALS: BP 136/60
[2022-02-07 20:00] VITALS: BP 114/54
[2022-02-07] MEDS ORDERED: ASPIRIN ADULT L81 M2 PO (20:43)
[2022-02-07] MEDS ORDERED: DULCOLAX STOOL100 MG PO (20:44)
[2022-02-07] MEDS ORDERED: GLIPIZIDE5 MG PO (20:49)
[2022-02-08] VITALS: BP 116/47
[2022-02-08 06:21] LABS: BASO # 0.1 10*3/uL (0.0-0.1); BASO % 0.9 % (0.0-1.0); EOS # 0.3 10*3/uL (0.0-0.4); EOS % 3.3 % (1.0-4.0); HEMATOCRIT 52.5 % (42.0-52.0); LYMPH % 10.7 % (27.0-41.0); MEAN CELL VOLUME 94.8 fl (80.0-94.0); MEAN CORPUSCULAR HGB 30.9 pg (27.0-31.0); MEAN CORPUSCULAR HGB CONC 32.6 g/dl (33.0-37.0); MEAN PLATELET VOLUME 9.6 fl (9.6-12.3); MONO # 0.7 10*3/uL (0.1-1.0); MONO % 8.2 % (3.0-9.0); NEUT # 6.9 10*3/uL (2.3-7.9); NEUT % 76.6 % (47.0-73.0); PLATELET COUNT AUTOMATED 251 10*3/uL (130-400); RED BLOOD COUNT 5.54 10*6/uL (4.50-5.90); RED CELL DISTRI WIDTH 13.7 % (0-14.5)
[2022-02-08 06:29] LABS: INTERNATIONAL NORM RATIO 1.1 (2.0-3.5)
[2022-02-08 06:35] LABS: BUN 16 mg/dl (7-24); CHLORIDE 97 mmol/L (98-107); CREATININE 1.31 mg/dL (0.70-1.30); POTASSIUM 3.4 mmol/L (3.5-5.1); SODIUM 135 mmol/L (136-145)
[2022-02-08 08:00] VITALS: BP 107/53
[2022-02-08 12:00] VITALS: BP 139/63
[2022-02-08 16:00] VITALS: BP 140/46
[2022-02-08 20:00] VITALS: BP 131/80
[2022-02-09] VITALS: BP 126/70
[2022-02-09 07:14] LABS: BASO # 0.1 10*3/uL (0.0-0.1); BASO % 1.1 % (0.0-1.0); EOS # 0.7 10*3/uL (0.0-0.4); EOS % 8.1 % (1.0-4.0); HEMATOCRIT 47.1 % (42.0-52.0); LYMPH # 1.2 10*3/uL (1.3-4.4); LYMPH % 13.1 % (27.0-41.0); MEAN CELL VOLUME 92.9 fl (80.0-94.0); MEAN CORPUSCULAR HGB 30.8 pg (27.0-31.0); MEAN CORPUSCULAR HGB CONC 33.1 g/dl (33.0-37.0); MEAN PLATELET VOLUME 9.4 fl (9.6-12.3); MONO # 0.8 10*3/uL (0.1-1.0); MONO % 8.6 % (3.0-9.0); NEUT # 6.3 10*3/uL (2.3-7.9); NEUT % 68.6 % (47.0-73.0); PLATELET COUNT AUTOMATED 223 10*3/uL (130-400); RED BLOOD COUNT 5.07 10*6/uL (4.50-5.90); RED CELL DISTRI WIDTH 13.7 % (0-14.5); WHITE BLOOD COUNT 9.1 10*3/uL (4.8-10.8)
[2022-02-09 07:26] LABS: INTERNATIONAL NORM RATIO 1.3 (2.0-3.5)
[2022-02-09 07:59] LABS: BUN 15 mg/dl (7-24); CHLORIDE 100 mmol/L (98-107); CREATININE 1.32 mg/dL (0.70-1.30); POTASSIUM 3.2 mmol/L (3.5-5.1); SODIUM 138 mmol/L (136-145)
[2022-02-09 08:00] VITALS: BP 132/55
[2022-02-09 12:00] VITALS: BP 99/68
[2022-02-09 16:00] VITALS: BP 101/80
[2022-02-09 20:00] VITALS: BP 125/57
[2022-02-10] VITALS: BP 94/66
[2022-02-10 08:00] VITALS: BP 134/62
[2022-02-10 09:20] LABS: BASO # 0.1 10*3/uL (0.0-0.1); BASO % 1.1 % (0.0-1.0); EOS # 0.7 10*3/uL (0.0-0.4); EOS % 7.9 % (1.0-4.0); HEMATOCRIT 52.9 % (42.0-52.0); LYMPH # 1.2 10*3/uL (1.3-4.4); LYMPH % 13.1 % (27.0-41.0); MEAN CELL VOLUME 95.5 fl (80.0-94.0); MEAN CORPUSCULAR HGB 31.2 pg (27.0-31.0); MEAN CORPUSCULAR HGB CONC 32.7 g/dl (33.0-37.0); MEAN PLATELET VOLUME 9.5 fl (9.6-12.3); MONO # 0.6 10*3/uL (0.1-1.0); MONO % 6.4 % (3.0-9.0); NEUT # 6.3 10*3/uL (2.3-7.9); NEUT % 71.1 % (47.0-73.0); PLATELET COUNT AUTOMATED 244 10*3/uL (130-400); RED BLOOD COUNT 5.54 10*6/uL (4.50-5.90); RED CELL DISTRI WIDTH 13.6 % (0-14.5); WHITE BLOOD COUNT 8.9 10*3/uL (4.8-10.8)
[2022-02-10 09:33] LABS: INTERNATIONAL NORM RATIO 1.7 (2.0-3.5)
[2022-02-10 10:01] LABS: ALKALINE PHOSPHATASE 49 U/L (45-117); BUN 16 mg/dl (7-24); CHLORIDE 102 mmol/L (98-107); CREATININE 1.25 mg/dL (0.70-1.30); POTASSIUM 3.7 mmol/L (3.5-5.1); SGPT/ALT 19 U/L (12-78); SODIUM 140 mmol/L (136-145); TOTAL PROTEIN 7.6 gm/dL (6.4-8.2)
[2022-02-10] MEDS ORDERED: RIVASTIGMINE TAR3 M1 PO (10:13)
[2022-02-10] MEDS ORDERED: BUMETANIDE1 MG PO (10:13)
[2022-02-10] MEDS ORDERED: OLANZAPINE5 MG PO (10:13)
[2022-02-10 12:00] VITALS: BP 120/64
[2022-02-10 16:00] VITALS: BP 119/67
== END 2022-02-10 17:30 | DRG 689 ==
LOC: ED 11:08 → 5E 16:50 → EDHOLD 16:50 → 5E 16:55
PROVIDERS: Family Medicine; ADMIT Internal Medicine; ATTEND Internal Medicine
DX: N39.0 Urinary tract infection, site not specified (principal); N17.0 Acute kidney failure with tubular necrosis; I48.21 Permanent atrial fibrillation; I50.30 Unspecified diastolic (congestive) heart failure; F02.818 Dementia in other diseases classified elsewhere, unspecified severity, with other behavioral disturbance; R62.7 Adult failure to thrive; Z96.651 Presence of right artificial knee joint; E86.0 Dehydration; E87.6 Hypokalemia; E11.51 Type 2 diabetes mellitus with diabetic peripheral angiopathy without gangrene; E03.9 Hypothyroidism, unspecified; G30.1 Alzheimer's disease with late onset; N40.1 Benign prostatic hyperplasia with lower urinary tract symptoms; R33.8 Other retention of urine; S81.012A Laceration without foreign body, left knee, initial encounter; S81.011A Laceration without foreign body, right knee, initial encounter; X58.XXXA Exposure to other specified factors, initial encounter; Z91.040 Latex allergy status; Z98.49 Cataract extraction status, unspecified eye; Z87.891 Personal history of nicotine dependence; Y93.89 Activity, other specified; Y92.89 Other specified places as the place of occurrence of the external cause; Y99.8 Other external cause status; Z68.31 Body mass index [BMI] 31.0-31.9, adult